=== PATIENT | female | born 1945 | race Caucasian/White ===

== ENCOUNTER 2016-12-27 17:00 | Inpatient (IN) | payer OTHER ==
[~2016-12-27] VITALS: Ht 165.1 cm; Wt 77.8 kg
[2016-12-27 17:37] LABS: EOSINOPHIL (%) 1.1 % (0-5); EOSINOPHIL COUNT 0.1 K/uL (0-0.3); HEMATOCRIT 37.4 % (36.0-46.0); IMMATURE GRANULOCYTE (%) 0.7 % (0.0-0.7); IMMATURE GRANULOCYTE COUNT 0.1 K/uL; INSTRUMENT ABS NEUTROPHIL CT 7.7 K/uL; LYMPHOCYTE COUNT 1.4 K/uL (1.0-2.8); MCH 28.6 PG (29.0-34.0); MCHC 32.4 G/DL (30.0-36.0); MCV 88.4 FL (83-99); MEAN PLAT.VOLUME 10.3 uM^3 (9.5-12.4); MONOCYTE (%) 5.1 % (3-12); MONOCYTE COUNT 0.5 K/uL (0-0.8); NEUTROPHIL COUNT 7.7 K/uL (1.8-6.4); PLATELET COUNT 196 K/uL (156-360); RBC DIS.WIDTH-CV 12.9 % (11.8-14.6); RBC DIS.WIDTH-SD 41.9 % (39-53); RED BLOOD COUNT 4.23 M/uL (3.80-5.20); WHITE BLOOD COUNT 9.8 K/uL (4.1-10.2)
[2016-12-27 17:48] LABS: CHLORIDE 105 mEq/L (99-109); POTASSIUM 4.1 mEq/L (3.7-5.4); SODIUM 143 mEq/L (136-147)
[2016-12-27 17:49] LABS: GLUCOSE 99 mg/dL (70-99)
[2016-12-27 17:51] LABS: ANION GAP 12 MEQ/L (2-14)
[2016-12-27 17:54] LABS: UREA NITROGEN (BUN) 19 mg/dL (9-23)
[2016-12-27 17:57] LABS: GFR ESTIMATE (CALCULATED) > 59 mL/min/
[2016-12-27 20:34] LABS: INTER. NORMALIZED RATIO 1.1; PROTHROMBIN TIME 12.1 SEC (10.2-12.9)
[2016-12-27] MEDS ORDERED: CELEBREX200 MG PO (22:40)
[2016-12-27] MEDS ORDERED: LISINOPRIL-HCT1 EAC3 PO (22:40)
[2016-12-27] MEDS ORDERED: OMEPRAZOLE40 M1 PO (22:41)
[2016-12-27] MEDS ORDERED: ZOLOFT100 MG PO (22:42)
[2016-12-27] MEDS ORDERED: LO-DOSE ASPIRIN81 M1 PO (22:42)
[2016-12-27] MEDS ORDERED: SYNTHROID150 MCG PO (22:42)
[2016-12-27] MEDS ORDERED: ZETIA10 MG PO (22:42)
[2016-12-27] MEDS ORDERED: CALCIUM 600 MG1 EACH PO (22:43)
[2016-12-27] MEDS ORDERED: CENTRUM WOMEN1 EACH PO (22:44)
[2016-12-27] MEDS ORDERED: TYLENOL ARTHRI650 MG PO (22:45)
[2016-12-27] MEDS ORDERED: BIOTIN PLUS KE1 EACH PO (22:46)
[2016-12-27] MEDS ORDERED: ESTRADIOL0.5 MG PO (22:47)
[2016-12-28 00:13] LABS: ADD MIUA? NO; BILIRUBIN NEGATIVE; BLOOD NEGATIVE; COLOR YELLOW ((YELLOW)); GLUCOSE (STRIP) NEGATIVE; KETONES 20; LEUKOCYTES NEGATIVE; NITRITE NEGATIVE; PROTEIN (STRIP) NEGATIVE; SPECIFIC GRAVITY 1.045 (1.000-1.030); UCUL ADDED? NO
[2016-12-28 00:46] VITALS: BP 159/69
[2016-12-28 04:36] VITALS: BP 122/58
[2016-12-28 07:51] VITALS: BP 151/63
[2016-12-28 08:15] VITALS: BP 136/58
[2016-12-28 16:10] VITALS: BP 116/83
[2016-12-28 20:09] VITALS: BP 129/62
[2016-12-29 00:08] VITALS: BP 142/65
[2016-12-29 06:51] LABS: HEMATOCRIT 29.3 % (36.0-46.0); MCV 90.2 FL (83-99)
[2016-12-29 16:38] VITALS: BP 143/65
[2016-12-29 23:56] VITALS: BP 141/65
[2016-12-30 06:22] LABS: HEMATOCRIT 28.7 % (36.0-46.0); MCV 90.3 FL (83-99)
[2016-12-30 08:05] VITALS: BP 138/79
[2016-12-30] MEDS ORDERED: HYDROMORPHONE HC2 MG PO (08:46)
[2016-12-30] MEDS ORDERED: ELIQUIS2.5 MG PO (08:46)
[2016-12-30] MEDS ORDERED: DILAUDID4 MG PO (15:42)
[2016-12-30] MEDS ORDERED: SENOKOT,SENN1 TABLET PO (15:43)
[2016-12-30] MEDS ORDERED: COLACE100 MG PO (15:43)
[2016-12-30] MEDS ORDERED: ZOFRAN4 MG IV (15:45)
[2016-12-30] MEDS ORDERED: BENADRYL25 MG PO (15:46)
== END 2016-12-30 13:52 | DRG 482 ==
LOC: EME 17:00 → 3EAST 21:30 → EDOF 21:30 → 3EAST 23:25
PROVIDERS: Emergency Medicine; Orthopaedic Surgery
PROC: 0QS604Z Reposition Right Upper Femur with Internal Fixation Device, Open Approach (ICD-10-PCS; principal; 2016-12-28)
DX: S72.001A Fracture of unspecified part of neck of right femur, initial encounter for closed fracture (principal); I10 Essential (primary) hypertension; E03.9 Hypothyroidism, unspecified; E78.00 Pure hypercholesterolemia, unspecified; S20.219A Contusion of unspecified front wall of thorax, initial encounter; W18.30XA Fall on same level, unspecified, initial encounter; Z96.653 Presence of artificial knee joint, bilateral; Z68.28 Body mass index [BMI] 28.0-28.9, adult
CPT/HCPCS: 71260; 73502; 74177; 76000; 80048; 81003; 85014; 85018; 85025; 85610; 86900; 86901; 93005; 94799; 97530 GO; 97530 GP; 99281; 99285; C1713; J0330; J0690; J1170; J2270; J2405; J2710; J3010; J7120

== ENCOUNTER 2016-12-30 10:45 | Inpatient (IN) | payer OTHER ==
[~2016-12-30] VITALS: Ht 165.1 cm; Wt 76.8 kg
[~2016-12-30 10:45] MED LIST: BIOTIN PLUS KE1 EACH PO; CALCIUM 600 MG1 EACH PO; CELEBREX200 MG PO; CENTRUM WOMEN1 EACH PO; ELIQUIS2.5 MG PO; ESTRADIOL0.5 MG PO; HYDROMORPHONE HC2 MG PO; LISINOPRIL-HCT1 EAC3 PO; LO-DOSE ASPIRIN81 M1 PO; OMEPRAZOLE40 M1 PO; SYNTHROID150 MCG PO; TYLENOL ARTHRI650 MG PO; ZETIA10 MG PO; ZOLOFT100 MG PO
[2016-12-30 13:59] VITALS: BP 131/62
[2016-12-30] MEDS ORDERED: DILAUDID4 MG PO (15:42)
[2016-12-30] MEDS ORDERED: COLACE100 MG PO (15:43)
[2016-12-30] MEDS ORDERED: SENOKOT,SENN1 TABLET PO (15:43)
[2016-12-30] MEDS ORDERED: ZOFRAN4 MG IV (15:45)
[2016-12-30] MEDS ORDERED: BENADRYL25 MG PO (15:46)
[2016-12-30 23:20] VITALS: BP 119/55
[2016-12-31 05:53] VITALS: BP 115/53
[2016-12-31 06:15] LABS: HEMATOCRIT 28.5 % (36.0-46.0); MCH 28.3 PG (29.0-34.0); MCHC 31.9 G/DL (30.0-36.0); MCV 88.5 FL (83-99); MEAN PLAT.VOLUME 10.8 uM^3 (9.5-12.4); PLATELET COUNT 212 K/uL (156-360); RBC DIS.WIDTH-CV 12.6 % (11.8-14.6); RBC DIS.WIDTH-SD 40.7 % (39-53); WHITE BLOOD COUNT 9.8 K/uL (4.1-10.2)
[2016-12-31 06:41] LABS: ALKALINE PHOSPHATASE 91 IU/L (3-129); ANION GAP 8 MEQ/L (2-14); CHLORIDE 99 MEQ/L (99-109); GFR ESTIMATE (CALCULATED) > 59 mL/min/; GLUCOSE 124 mg/dL (70-99); POTASSIUM 3.6 MEQ/L (3.7-5.4); SAMPLE HEMOLYSIS CHECK 0; SAMPLE ICTERIC CHECK 0; SAMPLE LIPEMIA CHECK 0; SODIUM 141 MEQ/L (136-147); TOTAL BILIRUBIN 0.6 MG/DL (0.0-1.0); UREA NITROGEN (BUN) 11 mg/dL (9-23)
[2016-12-31 06:45] LABS: RED BLOOD COUNT 3.22 M/uL (3.80-5.20)
[2016-12-31 15:44] VITALS: BP 132/63
[2017-01-01 05:35] VITALS: BP 117/61
[2017-01-01 14:58] VITALS: BP 135/62
[2017-01-02 05:20] VITALS: BP 117/54
[2017-01-02 06:24] LABS: ANION GAP 6 MEQ/L (2-14); CHLORIDE 101 MEQ/L (99-109); GFR ESTIMATE (CALCULATED) > 59 mL/min/; GLUCOSE 106 mg/dL (70-99); SAMPLE HEMOLYSIS CHECK 0; SAMPLE ICTERIC CHECK 0; SAMPLE LIPEMIA CHECK 0; SODIUM 141 MEQ/L (136-147); UREA NITROGEN (BUN) 12 mg/dL (9-23)
[2017-01-02 06:25] LABS: POTASSIUM 4.7 MEQ/L (3.7-5.4)
[2017-01-02 15:50] VITALS: BP 142/65
[2017-01-03 04:57] VITALS: BP 127/68
[2017-01-03 16:17] VITALS: BP 121/58
[2017-01-04 04:42] VITALS: BP 118/52
[2017-01-04 15:29] VITALS: BP 122/59
[2017-01-05 05:12] VITALS: BP 151/66
[2017-01-05 06:18] LABS: HEMATOCRIT 26.6 % (36.0-46.0); MCH 30.4 PG (29.0-34.0); MCHC 33.8 G/DL (30.0-36.0); MCV 89.9 FL (83-99); MEAN PLAT.VOLUME 9.6 uM^3 (9.5-12.4); RBC DIS.WIDTH-CV 13.1 % (11.8-14.6); RBC DIS.WIDTH-SD 42.2 % (39-53); RED BLOOD COUNT 2.96 M/uL (3.80-5.20); WHITE BLOOD COUNT 8.6 K/uL (4.1-10.2)
[2017-01-05 06:20] LABS: PLATELET COUNT 359 K/uL (156-360)
[2017-01-05 06:37] LABS: ANION GAP 6 MEQ/L (2-14); CHLORIDE 103 MEQ/L (99-109); GFR ESTIMATE (CALCULATED) > 59 mL/min/; GLUCOSE 99 mg/dL (70-99); POTASSIUM 4.2 MEQ/L (3.7-5.4); SAMPLE HEMOLYSIS CHECK 0; SAMPLE ICTERIC CHECK 0; SAMPLE LIPEMIA CHECK 0; SODIUM 138 MEQ/L (136-147); TOTAL BILIRUBIN 0.7 MG/DL (0.0-1.0)
[2017-01-05 07:00] LABS: ALKALINE PHOSPHATASE 114 IU/L (3-129); UREA NITROGEN (BUN) 23 mg/dL (9-23)
[2017-01-05 15:24] VITALS: BP 125/59
[2017-01-06 06:18] VITALS: BP 158/70
[2017-01-06 09:21] LABS: ADD MIUA? YES; BILIRUBIN NEGATIVE; BLOOD SMALL; COLOR YELLOW ((YELLOW)); GLUCOSE (STRIP) NEGATIVE; KETONES NEGATIVE; LEUKOCYTES LARGE; NITRITE NEGATIVE; PROTEIN (STRIP) 100; SPECIFIC GRAVITY 1.017 (1.000-1.030); UROBILINOGEN 0.2 MG/DL (0.2-1.0)
[2017-01-06 10:18] LABS: EPITHELIAL CELLS 2+ /HPF; MUCUS NONE SEEN /LPF; WHITE BLOOD CELLS TNTC /HPF (0-5)
[2017-01-06 10:19] LABS: BACTERIA 2+ /HPF
[2017-01-06 15:42] VITALS: BP 126/59
[2017-01-07 04:58] VITALS: BP 141/64
[2017-01-07 06:40] LABS: HEMATOCRIT 30.1 % (36.0-46.0); MCH 28.7 PG (29.0-34.0); MCHC 31.9 G/DL (30.0-36.0); MCV 89.9 FL (83-99); MEAN PLAT.VOLUME 9.1 uM^3 (9.5-12.4); PLATELET COUNT 418 K/uL (156-360); RBC DIS.WIDTH-CV 13.3 % (11.8-14.6); RBC DIS.WIDTH-SD 42.9 % (39-53); RED BLOOD COUNT 3.35 M/uL (3.80-5.20); WHITE BLOOD COUNT 8.2 K/uL (4.1-10.2)
[2017-01-07 07:01] LABS: ANION GAP 7 MEQ/L (2-14); CHLORIDE 104 MEQ/L (99-109); GFR ESTIMATE (CALCULATED) > 59 mL/min/; GLUCOSE 101 mg/dL (70-99); POTASSIUM 4.3 MEQ/L (3.7-5.4); SAMPLE HEMOLYSIS CHECK 0; SAMPLE ICTERIC CHECK 0; SAMPLE LIPEMIA CHECK 0; SODIUM 140 MEQ/L (136-147); UREA NITROGEN (BUN) 15 mg/dL (9-23)
[2017-01-07] MEDS ORDERED: SENNA PLUS TAB1 EACH PO (12:56)
[2017-01-07] MEDS ORDERED: CELEBREX200 MG PO (12:56)
[2017-01-07] MEDS ORDERED: ASCORBIC ACID500 M3 PO (12:56)
[2017-01-07] MEDS ORDERED: CENTRUM WOMEN1 EACH PO (12:56)
[2017-01-07] MEDS ORDERED: BACTRIM,SEPT1 TABLET PO (12:56)
[2017-01-07] MEDS ORDERED: ZOLOFT100 MG PO (12:56)
[2017-01-07] MEDS ORDERED: SYNTHROID150 MCG PO (12:56)
[2017-01-07] MEDS ORDERED: FOLIC ACID1 MG PO (12:56)
[2017-01-07] MEDS ORDERED: COLACE100 MG PO (12:56)
[2017-01-07] MEDS ORDERED: ZETIA10 MG PO (12:56)
[2017-01-07] MEDS ORDERED: HYDROCODON-ACE1 EAC7 PO (12:56)
[2017-01-07] MEDS ORDERED: LISINOPRIL-HCT1 EAC3 PO (12:56)
[2017-01-07] MEDS ORDERED: ESTRADIOL0.5 MG PO (12:56)
[2017-01-07] MEDS ORDERED: FLORASTOR250 MG PO (12:56)
[2017-01-07] MEDS ORDERED: OMEPRAZOLE40 M1 PO (12:56)
== END 2017-01-07 14:31 | disposition home or self-care (01) | DRG 560 ==
LOC: 3WEST 10:45 → ENPENDDIS 01-07 → 3WEST 01-07 14:31
PROVIDERS: Physical Medicine & Rehabilitation Pain Medicine
PROC: F07M0ZZ Range of Motion and Joint Mobility Treatment of Musculoskeletal System - Whole Body (ICD-10-PCS; principal; 2016-12-30)
DX: S72.001D Fracture of unspecified part of neck of right femur, subsequent encounter for closed fracture with routine healing (principal); W01.0XXD Fall on same level from slipping, tripping and stumbling without subsequent striking against object, subsequent encounter; R26.2 Difficulty in walking, not elsewhere classified; N39.0 Urinary tract infection, site not specified; G89.18 Other acute postprocedural pain; D62 Acute posthemorrhagic anemia; E87.6 Hypokalemia; I10 Essential (primary) hypertension; E78.5 Hyperlipidemia, unspecified; E03.9 Hypothyroidism, unspecified; G47.00 Insomnia, unspecified; K59.00 Constipation, unspecified; M19.90 Unspecified osteoarthritis, unspecified site; Z96.651 Presence of right artificial knee joint; Z79.01 Long term (current) use of anticoagulants
CPT/HCPCS: 71020; 80048; 80053; 81003; 85027; 87077; 87086; 87186; 97110 GO; 97530 GP